=== PATIENT | female | born 1975 | race Two or more races ===

== ENCOUNTER → 2024-06-18 | Outpatient (CLI) | payer MEDICAID, SELFPAY ==
--- NOTE | 2024-06-18 08:44 | XR_ITS ---
Examination: Abdomen AP single view Technique: AP portable supine abdomen, single view Exam date and time: 07/16/2024 0904 hours INDICATIONS: Intermittent bilateral flank pain beginning one year ago, history kidney stones FINDINGS: Moderate stool in the colon No renal or ureteral calculi Moderate osteopenia IMPRESSION: No renal or ureteral calculi
== END | disposition home or self-care (01) ==
PROVIDERS: PCP Family Medicine; Referring Provider Family Medicine; Visit Provider Family Medicine
DX: R10.9 Unspecified abdominal pain (principal)
CPT/HCPCS: 74018

== ENCOUNTER → 2024-08-31 | Outpatient (CLI) | payer MEDICAID, SELFPAY ==
--- NOTE | 2024-08-31 16:44 | XR_ITS ---
Examination: Abdomen sonogram, complete Date and time of exam: August 31, 2024 1653 hours INDICATIONS: Epigastric pain beginning 7 months ago TECHNIQUE: Multiple real-time grayscale transabdominal sonographic images abdomen FINDINGS: Normal gallbladder. Normal common bile duct 0.5 cm Pancreatic head 2.1 cm Aorta not enlarged. Liver 12.0 cm fatty infiltration irregular contour Normal hepatopedal portal venous flow Patent IVC Right kidney 9.7 cm renal cortex 2.0 cm Left kidney 10.0 cm renal cortex 1.6 cm Mild renal parenchymal scar formation Spleen 7.9 cm IMPRESSION: Normal gallbladder. Mild bilateral renal parenchymal scar formation Fatty liver, suspect primary hepatocellular disease.
== END | disposition home or self-care (01) ==
PROVIDERS: PCP Family Medicine; Referring Provider Internal Medicine Gastroenterology; Visit Provider Internal Medicine Gastroenterology
DX: N28.89 Other specified disorders of kidney and ureter (principal); K76.0 Fatty (change of) liver, not elsewhere classified
CPT/HCPCS: 76700

== ENCOUNTER → 2025-01-23 | Outpatient (CLI) | payer MEDICAID, SELFPAY ==
[2025-01-23 09:42] LABS: HCG Qualitative,Urine Negative
--- NOTE | 2025-01-23 10:00 | XR_ITS ---
Examination: GHASSAN, hepatobiliary radioisotope scan Gallbladder ejection fraction study. Date and time of exam: January 23, 2025 1740 hours INDICATIONS: Right upper abdominal pain and diarrhea beginning one year ago as reflux Technique: 5.9 mCi of 99M Hepatolite administered. Serial imaging then obtained from immediate through 60 minutes. 1.5 mcg selective catheter Kinevac administered for gallbladder ejection fraction study. Findings: Radioisotope activity within the liver is reasonably homogenous. Gallbladder, common bile duct small bowel activity noted Impression: Gallbladder activity Abnormal gallbladder ejection fraction, 4%
== END | disposition home or self-care (01) ==
LOC: SNUC 08:36
PROVIDERS: Referring Provider Student in an Organized Health Care Education/Training Program; Visit Provider Student in an Organized Health Care Education/Training Program
DX: R93.2 Abnormal findings on diagnostic imaging of liver and biliary tract (principal); Z32.00 Encounter for pregnancy test, result unknown
CPT/HCPCS: 78227; 81025; A9537; J2805